=== PATIENT | male | born 1975 | race Caucasian/White ===

== ENCOUNTER 2023-04-02 08:07 | Outpatient (CLI) | payer OTHER, SELFPAY | END 2023-04-02 08:08 | disposition home or self-care (01) | PROVIDERS: PCP Family Medicine; Visit Provider Family Medicine | DX: Z00.00 Encounter for general adult medical examination without abnormal findings (principal); R03.0 Elevated blood-pressure reading, without diagnosis of hypertension; R10.9 Unspecified abdominal pain | CPT/HCPCS: 80053; 80061 ==

== ENCOUNTER 2023-04-10 09:28 | Outpatient (CLI) | payer OTHER, SELFPAY ==
--- NOTE | 2023-04-10 10:00 | CRLHL7_ITS ---
For Patients: As a result of the Century Cures Act, medical imaging exams and procedure reports are released immediately into your electronic medical record. You may view this report before your referring provider. If you have questions, please contact your health care provider. INDICATION: Abdominal pain. TECHNIQUE: Multiplanar CT examination of the abdomen and pelvis were acquired after the administration of 100 mL Omnipaque 350 intravenously. COMPARISON: Abdominal radiographs 03/11/2023. FINDINGS: Lower chest: Unremarkable. Liver: Normal. Gallbladder/Biliary: Normal. No biliary ductal dilitation. Pancreas: Normal. Spleen: Normal. Adrenal Glands: Normal. Kidneys: Normal size and symmetrically enhancing. 2.5 cm simple appearing exophytic hypodensity within the upper pole of the left kidney, possibly a simple renal sinus cyst. Additional smaller simple appearing hypodensity arising from the lower pole left kidney measuring 1.5 cm, likely a simple renal cyst. No obstructive calculi or hydronephrosis. Ureters: Unremarkable. Bladder: Unremarkable. Bowel: No obstruction or bowel wall thickening. Appendectomy. Moderate colonic stool burden, fluid-filled loops of small bowel, with questionable minimal bowel wall thickening of the loops of jejunum in the left hemiabdomen, without adjacent inflammatory changes. No significant colonic diverticulosis. Pelvic organs: Coarse prostatic calcifications. Normal sized. Peritoneum: No free fluid or pneumoperitoneum. Vessels: Normal. Portal vein remains patent. No significant atherosclerotic disease. Lymph Nodes: No lymphadenopathy. Abdominal Wall/Soft Tissues: Unremarkable. Bones: Unremarkable. IMPRESSION: 1. Questionable jejunal wall thickening and fluid filled loops raise the possibility of an underlying nonspecific enteritis. 2. Otherwise, no acute abdominal pelvic pathology. Please note that all CT scans at this facility use dose modulation, iterative reconstruction, and/or weight-based dosing when appropriate to reduce radiation dose to as low as reasonably achievable. Dictated by Odilon Melgar MD @ 04/12/2023 9:24:24 PM (Electronically Signed)
== END 2023-04-10 09:29 | disposition home or self-care (01) ==
PROVIDERS: PCP Family Medicine; Visit Provider Family Medicine
DX: R10.9 Unspecified abdominal pain (principal)
CPT/HCPCS: 74177; Q9967

== ENCOUNTER 2023-04-17 09:18 | Outpatient (CLI) | payer OTHER, SELFPAY ==
--- NOTE | 2023-04-17 10:36 | W.ANESCHARGE ---
Anesthesia Charges Start Date/Time Anesthesia Start Date: 04/17/23 Anesthesia Start Time: 10:02 Stop Date/Time Anesthesia Stop Date: 04/17/23 Anesthesia Stop Time: 10:40
--- NOTE | 2023-04-17 10:44 | W.ANESCHARGE ---
Anesthesia Charges Start Date/Time Anesthesia Start Date: 04/17/23 Anesthesia Start Time: 10:02 Stop Date/Time Anesthesia Stop Date: 04/17/23 Anesthesia Stop Time: 10:40
== END 2023-04-17 09:19 | disposition home or self-care (01) ==
LOC: OP CLINIC 09:18
PROVIDERS: PCP Family Medicine; Visit Provider Internal Medicine
DX: K92.2 Gastrointestinal hemorrhage, unspecified (principal); K63.5 Polyp of colon; K62.5 Hemorrhage of anus and rectum; K62.89 Other specified diseases of anus and rectum; K57.30 Diverticulosis of large intestine without perforation or abscess without bleeding
CPT/HCPCS: 00813; 43239; 45380; 88305; 88342; J2704; J3490

== ENCOUNTER 2025-01-23 16:13 | Outpatient (CLI) | payer OTHER, SELFPAY | END 2025-01-23 16:14 | disposition home or self-care (01) | PROVIDERS: PCP Family Medicine; Visit Provider Family Medicine | DX: Z00.00 Encounter for general adult medical examination without abnormal findings (principal); E78.00 Pure hypercholesterolemia, unspecified; I10 Essential (primary) hypertension; K51.20 Ulcerative (chronic) proctitis without complications; Z12.5 Encounter for screening for malignant neoplasm of prostate | CPT/HCPCS: 80053; 80061; 84443; G0103 ==

== ENCOUNTER 2025-05-04 08:10 | Outpatient (CLI) | payer OTHER, SELFPAY | END 2025-05-04 08:11 | disposition home or self-care (01) | PROVIDERS: PCP Family Medicine; Referring Provider Family Medicine; Visit Provider Family Medicine | DX: E78.00 Pure hypercholesterolemia, unspecified (principal); I10 Essential (primary) hypertension; K51.20 Ulcerative (chronic) proctitis without complications | CPT/HCPCS: 80061; 80076 ==